=== PATIENT | female | born 1945 | race Caucasian/White ===

== ENCOUNTER 2018-06-28 13:39 | Emergency (ER) | payer OTHER ==
[2018-06-28 14:09] VITALS: BP 142/92; PULSE 80; TEMP 98.2; BMI 26.7
--- NOTE | 2018-06-28 14:17 | PDOC ---
History of Present Illness - General Chief Complaint: Pain, Acute Stated Complaint: LEG PAIN - History of Present Illness Initial Comments: Mallorie Jacques is a 72yo woman with a PMH of HTN, HLD, and osteoporosis who presents today complaining of right knee pain that has been present for months. She states that the pain starts in the back of her knee, goes around the front, and down the lateral calf to the foot. It is unclear whether the pain radiates or is present in all these places. She describes it as sharp, like being stabbed with a needle, as well as a hot/burning sensation. She is not aware of any injury or inciting event that caused the pain, and she states that it does not change with movement or position. The pain is constant all day. She also states that she needs to keep her leg elevated at night due to the pain. Ms Jacques was seen by a doctor in the past for evaluation of her knee pain, but she says that nothing was done. She believes they told her it was osteoporosis and gave her a calcium supplement and blood pressure medication. She does not know what else they told her. Ms Jacques states that she came to the ED today because she "can't stand" the pain anymore. She has not tried any pain medications or anything to relieve the pain at home. Past History - Past Medical History Allergies/Adverse Reactions: Allergies Allergy/AdvReac Type Severity Reaction Status Date / Time aspirin Allergy Verified 06/28/18 14:01 Home Medications: Ambulatory Orders Atenolol [Tenormin] 50 mg PO DAILY 06/28/18 COPD: No HTN: Yes Other medical history: sciatica, muscle cramping to legs - Suicide/Smoking/Psychosocial Hx Smoking History: Unknown if ever smoked Review of Systems - Review of Systems Comments:: General: No fevers, no chills, no weight or appetite change, no malaise HEENT: No changes in vision, no changes in hearing, no congestion, no sore throat CV: No chest pain, no palpitations, no LE edema Pulm: No SOB, no cough, no wheezing GI: No nausea or vomiting, no change in bowel habits, no melena : No frequency, no urgency, no dysuria Musc: See HPI Skin: No rash, no lesions, no erythema Endo: No excessive thirst, no heat/cold intolerance Heme: No unusual bruising or bleeding, no swollen glands Neuro: No syncope, no numbness/tingling, no focal weakness Vasc: No claudication Psych: No recent change in mood, no SI or HI *Physical Exam - Vital Signs Last Vital Signs Temp Pulse Resp BP Pulse Ox 98.2 F 80 20 142/92 97 06/28/18 14:01 06/28/18 14:01 06/28/18 14:01 06/28/18 14:01 06/28/18 14:01 - Physical Exam Comments: General: Comfortable, no acute distress HEENT: PERRL, EOMI, MMM, voice normal, normal neck ROM Cards: RRR, no murmur appreciated Pulm: Comfortable on room air, clear to auscultation bilaterally Abd: Soft, nontender, nondistended : No CVA tenderness Ext: Atraumatic. No LE edema. ROM intact. Strength 5/5 and equal bilaterally. RLE without obvious injury or deformity. TTP at popliteal fossa and medial/ lateral knee. No laxity at joint. No swelling or edema in calf or foot. Vasc: Extremities WWP. Palpable radial and pedal pulses bilaterally Skin: Normal color, no rashes or lesions Neuro: A&Ox3, CN grossly intact, normal speech, motor/sensory grossly intact and symmetric Psych: Mood appropriate to situation Medical Decision Making - Medical Decision Making 06/28/18 14:55 Mallorie Jacques is a 72yo woman with a PMH of HTN, HLD and osteoporosis who presents with multiple months of right knee pain. - Most likely occult injury vs arthritis. - Acetaminophen PO for pain - Knee xray ordered 06/28/18 16:24 - Pain improved with acetaminophen - Xray suggestive of arthritis - Plan to discharge Ms Jacques with orthopedic follow up. Discussed with patient and her daughter. Both understand and agree with this plan. Discussed with Dr Cruz. Sol Singh PGY1 *DC/Admit/Observation/Transfer Diagnosis at time of Disposition: Knee pain, right - Discharge Dispostion Disposition: HOME Condition at time of disposition: Stable Decision to Admit order: No - Referrals Referrals: Gil Martinez MD [Staff Physician] - - Patient Instructions Printed Discharge Instructions: DI for Arthritis, DI for Knee Pain Additional Instructions: Discharge Instructions: - You were seen in the ED for knee pain. Your xray suggested arthritis - You should take acetaminophen (Tylenol) or ibuprofen (Advil, Motrin) for pain - Make an appointment with Dr Martinez in orthopedics for follow up - Return to the ED if you have severe and worsening pain, leg swelling, one- sided leg weakness, numbness/tingling, or inability to walk Print Language: CHINESE - Post Discharge Activity
[2018-06-28] MEDS ORDERED: ACETAMINOPHEN 325 MG TABLET (FP) PO ONE (14:49)
[2018-06-28] MEDS ORDERED: ACETAMINOPHEN 325 MG TABLET (FP) ONE (14:57)
== END 2018-06-28 16:57 | disposition home or self-care (01) ==
LOC: JER 13:39
DX: M17.11 Unilateral primary osteoarthritis, right knee (principal); I10 Essential (primary) hypertension; E78.00 Pure hypercholesterolemia, unspecified
CPT/HCPCS: 73562-TC-RT-FY; 99283-25

== ENCOUNTER 2019-01-13 19:57 | Emergency (ER) | payer OTHER | END 2019-01-13 22:59 | LOC: JERFT 19:57 → JER 22:59 ==